=== PATIENT | female | born 1930 | race Caucasian/White ===

== ENCOUNTER 2017-04-26 07:22 | Emergency (ER) | payer MEDICARE, BC ==
--- NOTE | 2017-04-26 08:08 | EDM.PDOC ---
[id number] Complaint: FALL VIA [place]TH Time Seen by Provider: 04/26/17 07:35 Source of Information: Reports: Patient, EMS History Limitations: Reports: No Limitations - History of Present Illness INITIAL COMMENTS - FREE TEXT/NARRATIVE: 86-year-old female who still lives independently was getting out of bed this morning and stumbled falling onto her left hip. She was unable to get up but managed to crawl to the phone and call for help. EMS found her on the floor with significant left hip pain, shortening and rotation of the left leg. She denies any other injuries such as head or neck pain, denies upper extremity pain , shortness of breath, nausea or vomiting or recent illness. Onset: Today, Sudden Duration: Hour(s): (Within the last 2 hours) Location: Reports: Lower Extremity, Left Quality: Reports: Sharp, Stabbing Severity: Moderate Worsens with: Reports: Movement Associated Symptoms: Reports: No Other Symptoms Left Hip Pain Score (Numeric/FACES): 5 - Related Data Allergies Allergy/AdvReac Type Severity Reaction Status Date / Time ranitidine HCl [From Zantac] Allergy Severe Swollen Verified 04/26/17 07:40 Tongue Sulfa (Sulfonamide Allergy Swelling Verified 04/26/17 07:40 Antibiotics) Home Meds: Home Meds Losartan [Cozaar] 50 mg PO DAILY 02/18/14 [History] amLODIPine Besylate [Amlodipine Besylate] 10 mg PO DAILY 02/18/14 [History] Aspirin [Low Dose Aspirin EC] 81 mg PO DAILY 05/27/14 [History] Brimonidine/Timolol [Combigan 0.2%/0.5% Ophth Soln] 1 drop EYELF BID 05/28/14 [ History] Latanoprost [Xalatan 0.005% Ophth Soln] 1 drop EYEBOTH BEDTIME 05/28/14 [History ] Hydrochlorothiazide 25 mg PO DAILY 08/29/14 [History] traZODone 25 mg PO BEDTIME PRN 08/29/14 [History] Metoprolol Succinate [Toprol XL] 12.5 mg PO BEDTIME 04/26/17 [History] Metoprolol Succinate [Toprol XL] 50 mg PO DAILY 04/26/17 [History] Social & Family History - Tobacco Use Smoking Status *Q: Never Smoker Years of Tobacco use: 15 Used Tobacco, but Quit: Yes Month Tobacco Last Used: 1964 Second Hand Smoke Exposure: No - Caffeine Use Caffeine Use: Reports: Coffee - Alcohol Use Days Per Week of Alcohol Use: 0 - Recreational Drug Use Recreational Drug Use: No - Living Situation & Occupation Living situation: Reports: , with Family Occupation: Retired Review of Systems - Review of Systems Review Of Systems: See Below Constitutional: Denies: Fever Mouth/Throat: Reports: No Symptoms Respiratory: Reports: No Symptoms Cardiovascular: Reports: No Symptoms (Has a pacemaker) GI/Abdominal: Denies: Abdominal Pain Skin: Reports: Bruising (Has numerous small bruises on her upper extremities which are chronic) Neurological: Denies: Paresthesia Psychiatric: Reports: No Symptoms ED EXAM, GENERAL - Physical Exam Exam: See Below Exam Limited By: No Limitations General Appearance: Alert, No Apparent Distress (When lying still, very uncomfortable with any movement of the left hip or left leg) Respiratory/Chest: No Respiratory Distress, Lungs Clear Cardiovascular: Regular Rate, Rhythm GI/Abdominal: Soft, Non-Tender Extremities: Other (Intense pain to the left hip area with any palpation or movement. The left leg is shortened and externally rotated. Sensation and circulation are intact to both lower extremities) Course - Vital Signs Last Recorded V/S: Last Vital Signs Temp 97.2 F 04/26/17 09:38 Pulse 77 04/26/17 10:32 Resp 16 04/26/17 10:32 BP 94/48 L 04/26/17 10:32 Pulse Ox 94 L 04/26/17 10:32 - Orders/Labs/Meds Orders: Active Orders 24 hr Category Date Time Status Insert Urinary Catheter [OM.PC] Q24H Care 04/26/17 08:15 Ordered Urinary Catheter Assessment [RC] ASDIRECTED Care 04/26/17 08:02 Active Labs: Laboratory Tests 04/26/17 04/26/17 Range/Units 08:08 08:08 WBC 16.4 H (4.5-11.0) K/uL RBC 2.18 L (3.30-5.50) M/uL Hgb 8.5 L (12.0-15.0) g/dL Hct 25.0 L (36.0-48.0) % MCV 115 H (80-98) fL MCH 39 H (27-31) pg MCHC 34 (32-36) % Plt Count 292 (150-400) K/uL Neut % (Auto) 88 H (36-66) % Lymph % (Auto) 5 L (24-44) % [place]bour % (Auto) 6 (2-6) % Eos % (Auto) 0 L (2-4) % Baso % (Auto) 0 (0-1) % Sodium 140 (140-148) mmol/L Potassium 3.4 L (3.6-5.2) mmol/L Chloride 103 (100-108) mmol/L Carbon Dioxide 26 (21-32) mmol/L Anion Gap 14.4 H (5.0-14.0) mmol/L BUN 20 H D (7-18) mg/dL Creatinine 1.0 (0.6-1.0) mg/dL Est Cr Clr Drug Dosing 33.41 mL/min Estimated GFR (MDRD) 53 L (>60) Glucose 185 H (74-106) mg/dL Calcium 8.1 L (8.5-10.1) mg/dL Meds: Medications Discontinued Medications Generic Name Dose Route Start Last Admin Trade Name Freq PRN Reason Stop Dose Admin Hydromorphone HCl 0.25 mg 04/26/17 09:17 04/26/17 09:29 Dilaudid IVPUSH 04/26/17 09:18 0.25 mg ONETIME ONE Administration - Re-Assessments/Exams Free Text/Narrative Re-Assessment/Exam: 04/26/17 08:06 An x-ray of left hip was obtained which showed an intertrochanteric fracture with comminution. This was discussed with orthopedics, and a request for a CT scan of he hip was done. A Mcguire was placed, CBC and BMP were obtained. 04/26/17 08:51 Orthopedics look at the CT scan and ask for her to be sent to [place] for hip repair. CBC and BMP were obtained, her hemoglobin was low at 8.5, however reviewing her past hemoglobins this is actually somewhat higher than her baseline. 04/26/17 09:19 Patient was actually accepted by Dr. Burks in [place]. She was transferred for direct admission by EMS. Departure - Departure Time of Disposition: 10:39 Disposition: DC/Tfer to Other Condition: Fair Clinical Impression: Intertrochanteric fracture, hip Anemia Qualifiers: Anemia type: iron deficiency Iron deficiency anemia type: unspecified iron deficiency Qualified Code(s): D50.9 - Iron deficiency anemia, unspecified - Discharge Information Referrals: PCP,None [Primary Care Provider] - Forms: ED Department Discharge Care Plan Goals: Patient is transferred to [place] [facility], Dr. Burks for evaluation and repair of a left hip fracture. - My Orders Last 24 Hours: My Active Orders 04/26/17 08:02 Urinary Catheter Assessment [RC] ASDIRECTED 04/26/17 08:15 Insert Urinary Catheter [OM.PC] Q24H - Assessment/Plan Last 24 Hours: My Active Orders 04/26/17 08:02 Urinary Catheter Assessment [RC] ASDIRECTED 04/26/17 08:15 Insert Urinary Catheter [OM.PC] Q24H
--- NOTE | 2017-04-26 08:42 | CR ---
Hip Min 2V or 3V w Pelvis Lt HISTORY: fall, pain FINDINGS: There is an acute comminuted intertrochanteric fracture proximal left femur. Avulsion of t he greater and lesser trochanter is present. Fractures are displaced with varus deformity and overri ding. There is also a fracture of the left inferior pubic ramus. No acetabular fracture can be seen. Bony structures are diffusely osteopenic. Right total hip arthroplasty is noted. IMPRESSION: Comminuted intertrochanteric left hip fracture as described above. There is also a mildl y displaced fracture of the right inferior pubic ramus. Right total arthroplasty is noted. Generaliz ed osteopenia.
--- NOTE | 2017-04-26 08:50 | CT ---
Hip wo Cont Lt HISTORY: fx evaluation Axial spiral noncontrasted CT scan of the left hip was obtained along with sagittal, coronal, and 3- D reconstructions. Comparison is made with earlier plain radiographs. FINDINGS: There is a severely comminuted fracture intertrochanteric region proximal left femur. Ther e is avulsion of the greater trochanter and lesser trochanter along with multiple other small commin uted fragments. Fracture is displaced laterally with overriding and varus deformity. There is no dis location. Also demonstrated is a slightly comminuted fracture left inferior pubic ramus. No other definite fra cture can be seen. I see no acetabular fracture. Bony structures are diffusely osteopenic. Atheroscl erotic vascular calcification is noted. Right total hip arthroplasty appears satisfactory. No intrap elvic mass or abnormal fluid collections can be seen. There are degenerative and hypertrophic change s lower lumbar spine. IMPRESSION: Severely comminuted intertrochanteric left hip fracture with multiple displaced fragment s. There is varus deformity and overriding. Total DLP 340 mGycm
[2017-04-26] MEDS ORDERED: HYDROmorphone 0.5 MG/0.5 ML Syringe IVPUSH ONE (09:17)
[2017-04-26 10:35] VITALS: BP 94/48
== END 2017-04-26 10:30 | disposition other institution (70) ==
LOC: JP.ED 07:22
DX: S72.142A Displaced intertrochanteric fracture of left femur, initial encounter for closed fracture (principal); S32.591A Other specified fracture of right pubis, initial encounter for closed fracture; D50.9 Iron deficiency anemia, unspecified; Z88.2 Allergy status to sulfonamides; Z88.8 Allergy status to other drugs, medicaments and biological substances; Z79.899 Other long term (current) drug therapy; Z79.82 Long term (current) use of aspirin; W01.0XXA Fall on same level from slipping, tripping and stumbling without subsequent striking against object, initial encounter
CPT/HCPCS: 36415; 51702; 73502; 73700; 80048; 85025; 96374; 99284; 99285; J1170